=== PATIENT | female | born 1980 | race Caucasian/White ===

== ENCOUNTER → 2020-12-04 | Outpatient (CLI) | payer BC ==
[2020-12-04 16:49] LABS: Basophils % (A) 1 %; Eosinophils # (A) 0.1 k/uL (0-0.7); Eosinophils % (A) 1 %; HCT 39.6 % (34.0-46.0); HGB 13.3 gm/dL (11.4-16.0); Lymphocytes # (A) 1.6 k/uL (1.0-4.8); Lymphocytes % (A) 18 %; MCH 30.7 pg (25.0-35.0); MCHC 33.5 g/dL (31.0-37.0); MCV 91.4 fL (80.0-100.0); Mean Platelet Volume 7.6; Monocytes # (A) 0.6 k/uL (0-1.0); Monocytes % (A) 7 %; Neutrophils # (A) 6.5 k/uL (1.3-7.7); Neutrophils % (A) 73 %; Platelet Count 395 k/uL (150-450); RBC 4.33 m/uL (3.80-5.40); RDW 12.8 % (11.5-15.5)
== END | disposition home or self-care (01) ==
LOC: LABPAT 15:39
PROVIDERS: ATTEND Obstetrics & Gynecology
DX: Z01.812 Encounter for preprocedural laboratory examination (principal); N92.0 Excessive and frequent menstruation with regular cycle
CPT/HCPCS: 85025

== ENCOUNTER → 2020-12-04 | Outpatient (CLI) | payer BC ==
--- NOTE | 2020-12-07 11:11 | MM ---
Reason for exam: screening (asymptomatic). Last mammogram was performed 15 years and 9 months ago. History: Taking hormonal contraceptives beginning at age 18. Physical Findings: A clinical breast exam by your physician is recommended on an annual basis and results should be correlated with mammographic findings. MG Screening Mammo w CAD Bilateral CC and MLO view(s) were taken. Prior study comparison: March 11, 2005, CAD bilateral diagnostic mammogram. The breast tissue is heterogeneously dense. This may lower the sensitivity of mammography. There is no discrete abnormality. ASSESSMENT: Negative, BI-RAD 1 RECOMMENDATION: Routine screening mammogram of both breasts in 1 year.
== END | disposition home or self-care (01) ==
LOC: RADMAMWWP 15:47
PROVIDERS: ATTEND Family Medicine
DX: Z12.31 Encounter for screening mammogram for malignant neoplasm of breast (principal); Z79.3 Long term (current) use of hormonal contraceptives
CPT/HCPCS: 77067

== ENCOUNTER → 2020-12-12 | Day surgery (SDC) | payer BC ==
[2020-12-08 10:49] VITALS: BMI 26.6
[~2020-12-12] MED LIST: ACETAMINOPHEN TAB 325 MG TAB PO PRN; Acetaminophen-Codeine 300-30mg TAB PO PRN; DEXAMETHASONE SOD PHOSPHATE 4 MG/ML 1 ML VIAL IV ONE; HYDROmorphone 0.5 MG/0.5 ML SYRINGE IVP PRN; IBUPROFEN 600 MG TAB PO PRN; KETOROLAC 15 MG/ML 1 ML VIAL IVP PRN; KETOROLAC 15 MG/ML 1 ML VIAL ONE; LACTATED RINGERS 1,000 ML IV SCH; LIDOCAINE 1% (10MG/ML) FOR IV START INTRADERMA PRN; LIDOCAINE 1% INJ 10MG/ML (20 ML MDV) ONE; METOCLOPRAMIDE 5 MG/ML 2 ML VIAL IVP PRN; MIDAZOLAM 2 MG/2 ML VIAL ONE; ONDANSETRON 4 MG/2 ML VIAL IVP ONE; ONDANSETRON 4 MG/2 ML VIAL IVP PRN; PROPOFOL 10 MG/ML 20 ML VIAL IV ONE; Pre Op ABX Message 1 EACH MISC MISCELLANE ONE; SCOPOLAMINE 1.5MG/72HR PATCH TRANSDERM ONE; SIMETHICONE 80 MG CHEWABLE PO PRN; diphenhydrAMINE 50 MG/ML 1 ML VIAL IVP PRN; fentaNYL (PF) 50 MCG/ML 2 ML AMP ONE
--- NOTE | 2020-12-12 11:05 | P.OP ---
Date of Procedure: 12/12/20 Preoperative Diagnosis: #1. Menorrhagia Postoperative Diagnosis: Same Procedure(s) Performed: #1. Diagnostic hysteroscopy 2. Dilation and curettage #3. NovaSure endometrial ablation Anesthesia: other (Gen. by LMA) Surgeon: Bruno Jackson Estimated Blood Loss (ml): 5 IV fluids (ml): 500 Urine output (ml): 100 Pathology: other Condition: stable Disposition: PACU Operative Findings: Gravid pelvic examination demonstrated a roughly 5 week slightly anteverted mobile normal shaped uterus. Intraoperatively, cervix measured approximately 3- 1/2 cm while uterus measured 9 cm in length. Utilizing hysteroscope, the bilateral tubal ostia were seen. There was minimal tissue noted within the in vitro cavity and no evidence of any pathology. Curettage produced a small amount tissue onto the Telfa which was sent for pathological diagnoses. The settings for the NovaSure tool where a length of 5.5 cm, a width of 4.4 cm for a total power of 133 W. After a run time of 75 seconds, the base unit read "procedure complete." The postprocedural result with the hysteroscope appeared excellent. The patient is a relatively poor candidate for vaginal hysterectomy should become necessary in the future. Da Aron approach would be preferable. Description of Procedure: The patient was prepped and draped in usual fashion after general anesthesia was administered by the anesthesiologist. A weighted speculum was placed in the anterior lip cervix grasped with single-tooth tenaculum. The bladder was draining approximately 100 mL of clear constantin urine. The uterus was sounded to 9 cm with cervical length of 3.5 cm. The cervix was then serially dilated to admit the diagnostic hysteroscope which was placed and the cavity distended with normal saline. The findings as noted above with no evidence of any pathology and the bilateral tubal ostia were seen. The scope was and set aside and the NovaSure tool placed within the cavity, opened, and seated well. The settings were a length of 5.5 cm, a width of 4.4 cm for a total power of 133 W. The cavity check was attempted and passed without difficulty. The tool was enabled and the run was started. After a run time of 75 seconds, the base unit read "procedure complete." The NovaSure tool was closed, removed, and discarded. The diagnostic hysteroscope was replaced and the results appeared to be excellent. All instrumentation was then removed. The patient is a relatively poor candidate for vaginal hysterectomy given only a small degree of descensus. There was no significant ongoing bleeding either from the cervix or from the tenaculum site. Estimated blood loss for the entire case was approximately 5 mL. There were no complications. All sponge, instrument, and needle counts were correct. The patient tolerated the procedure well and proceeded to the recovery room in stable condition.
[2020-12-12 11:17] VITALS: TEMP 97.1
[2020-12-12 11:46] VITALS: RESP 18
[2020-12-12 12:07] VITALS: BP 125/72; PULSE 67
== END | disposition home or self-care (01) ==
LOC: OR 08:35
PROVIDERS: ATTEND Obstetrics & Gynecology
DX: N92.0 Excessive and frequent menstruation with regular cycle (principal); Z98.890 Other specified postprocedural states; Z98.51 Tubal ligation status; Z90.89 Acquired absence of other organs; J45.909 Unspecified asthma, uncomplicated; F17.200 Nicotine dependence, unspecified, uncomplicated; F41.9 Anxiety disorder, unspecified; K21.9 Gastro-esophageal reflux disease without esophagitis; Z82.49 Family history of ischemic heart disease and other diseases of the circulatory system; Z83.3 Family history of diabetes mellitus; Z82.3 Family history of stroke; Z80.8 Family history of malignant neoplasm of other organs or systems; Z80.0 Family history of malignant neoplasm of digestive organs; Z79.899 Other long term (current) drug therapy
CPT/HCPCS: 81025; 88305; 58563; J2250; J1100; J2405; J2001; J3010; J1885; J2704

== ENCOUNTER 2022-08-27 16:13 | Emergency (ER) | payer BC ==
[2022-08-27 16:18] VITALS: TEMP 98.1
[2022-08-27] MEDS ORDERED: KETOROLAC 15 MG/ML 1 ML VIAL IVP STA (16:31)
[2022-08-27] MEDS ORDERED: SODIUM CHLORIDE 0.9% 1,000 ML IV STA (16:31)
--- NOTE | 2022-08-27 17:12 | ED ---
Abdominal Pain HPI - General Chief Complaint: Abdominal Pain Stated Complaint: Abd pain Time Seen by Provider: 08/27/22 16:25 Source: patient Mode of arrival: ambulatory Limitations: no limitations - History of Present Illness Initial Comments: Patient is a 42-year-old female presenting with chief complaint of lower abdominal pain has been going on for the last week. Patient states that it feels like it's in the center of her pelvis and is a cramping pain. Patient attributed to menstrual cramps, but states that symptoms have been getting worse over the last week and she is now developing nausea. Patient had an ablation performed [address] Jackson. She saw him in the office today, states that when he pressed on her abdomen she had more sensitivity in the upper abdomen, he recommended reporting to the ER as he does not believe this to be a gynecologic concern. Patient admits to worsening nausea after eating. Pain is worse with laying back. She denies any dysuria or hematuria. Ever since the patient's ablation 2 years ago she has only had very minor spotting associated with her menstrual cycles, no current bleeding. No back or flank pain. No fevers or chills. No diarrhea. - Related Data Home Medications Medication Instructions Recorded Confirmed Citalopram Hydrobromide [CeleXA] 20 mg PO DAILY 12/08/20 12/12/20 Previous Rx's Medication Instructions Recorded Nitrofurantoin Monohyd/M-Cryst 100 mg PO Q12HR 5 Days #10 cap 08/27/22 [Macrobid] Allergies Allergy/AdvReac Type Severity Reaction Status Date / Time No Known Allergies Allergy Verified 08/27/22 16:18 Review of Systems ROS Statement: Those systems with pertinent positive or pertinent negative responses have been documented in the HPI. ROS Other: All systems not noted in ROS Statement are negative. Past Medical History Additional Past Medical History / Comment(s): hx. ovarian cysts History of Any Multi-Drug Resistant Organisms: None Reported Past Surgical History: Tubal Ligation, Uterine Ablation Past Anesthesia/Blood Transfusion Reactions: No Reported Reaction Past Psychological History: No Psychological Hx Reported Smoking Status: Never smoker Past Alcohol Use History: None Reported Past Drug Use History: None Reported - Past Family History Mother Family Medical History: No Reported History General Exam Limitations: no limitations General appearance: alert, in no apparent distress Head exam: Present: atraumatic, normocephalic, normal inspection Eye exam: Present: normal appearance Neck exam: Present: normal inspection, full ROM Respiratory exam: Present: normal lung sounds bilaterally. Absent: respiratory distress, wheezes, rales, rhonchi, stridor Cardiovascular Exam: Present: regular rate, normal rhythm, normal heart sounds. Absent: systolic murmur, diastolic murmur, rubs, gallop, clicks GI/Abdominal exam: Present: soft. Absent: distended, tenderness, guarding, rebound, rigid Neurological exam: Present: alert, oriented X3, CN II-XII intact Psychiatric exam: Present: normal affect, normal mood Skin exam: Present: warm, dry, intact, normal color. Absent: rash Course Vital Signs 08/27/22 08/27/22 16:15 19:29 Temperature 98.1 F Pulse Rate 57 L 50 L Respiratory 20 18 Rate Blood Pressure 147/114 135/77 O2 Sat by Pulse 100 100 Oximetry Medical Decision Making - Medical Decision Making Was pt. sent in by a medical professional or institution (, PA, POTATO PICKER, urgent care, hospital, or care home...) When possible be specific @ -Sent by JUVENILE COUNSELOR Did you speak to anyone other than the patient for history (EMS, parent, family, police, friend...)? What history was obtained from this source @ -No Did you review nursing and triage notes (agree or disagree)? Why? @ -I reviewed and agree with nursing and triage notes Were old charts reviewed (outside hosp., previous admission, EMS record, old EKG, old radiological studies, urgent care reports/EKG's, care home records)? Report findings @ -No old charts were reviewed Differential Diagnosis (chest pain, altered mental status, abdominal pain women, abdominal pain men, vaginal bleeding, weakness, fever, dyspnea, syncope, headache, dizziness, GI bleed, back pain, seizure, CVA, palpatations, mental health, musculoskeletal)? @ -MDM Differential Abdominal Pain Women: Appendicitis, Cholecystitis, diverticulosis, ischemic bowel, pancreatitis, hepatitis, UTI, gastroenteritis, AAA, incarcerated hernia, bowel obstruction, constipation, inflammatory bowel, hepatitis, peptic ulcer disease, splenic infarction, perforated viscus, vulvitis, ovarian torsion, PID, kidney stone, placenta abruption... This is not meant to be an all-inclusive list EKG interpreted by me (3pts min.). @ -As above X-rays interpreted by me (1pt min.). @ -None done CT interpreted by me (1pt min.). @ -Negative CT of abdomen and pelvis U/S interpreted by me (1pt. min.). @ -Ultrasound shows minimal free fluid. Multiple small uterine cyst. No endometrial thickening. No evidence of ovarian torsion. What testing was considered but not performed or refused? (CT, X-rays, U/S, labs)? Why? @ -None What meds were considered but not given or refused? Why? @ -None Did you discuss the management of the patient with other professionals (professionals i.e. Dr., PA, POTATO PICKER, lab, RT, psych nurse, psych social worker, power cleaner operator, teacher, service officer, case consultant)? Give summary @ -No Was smoking cessation discussed for >3mins.? @ -No Was critical care preformed (if so, how long)? @ -No Were there social determinants of health that impacted care today? How? (Homelessness, low income, unemployed, alcoholism, drug addiction, transportation, low edu. Level, literacy, decrease access to med. care, care home, rehab)? @ -No Was there de-escalation of care discussed even if they declined (Discuss DNR or withdrawal of care, Hospice)? DNR status @ -No What co-morbidities impacted this encounter? (DM, HTN, Smoking, COPD, CAD, Cancer, CVA, ARF, Chemo, Hep., AIDS, mental health diagnosis, sleep apnea, morbid obesity)? @ -None Was patient admitted / discharged? Hospital course, mention meds given and route, prescriptions, significant lab abnormalities, going to OR and other pertinent info. @ -Patient is a 42-year-old female presenting with chief complaint of pelvic pain that is ongoing for 1 week. She was seen in the office by her JUVENILE COUNSELOR today, on his exam she had tenderness to palpation of the bilateral upper quadrants as well, he encouraged her to report to the ER for further workup. On physical examination patient has minimal diffuse tenderness to the abdomen. Lab work shows no leukocytosis or anemia. CMP is unremarkable. Amylase and lipase are WNL. Urine has moderate leukocytes and 8 WBCs, we will treat for UTI with Macrobid. HCG is negative. Transvaginal ultrasound shows uterine cysts. CT shows no acute process. Patient is educated on these findings. Prescription is sent for Macrobid and patient is instructed to follow-up with her JUVENILE COUNSELOR. Follow-up with PCP. Report back to ER with any new or worsening symptoms. Discussed return parameters and answered all questions. Patient conveyed verbal understanding and agreed to the plan. I discussed this case in detail with my attending Dr. Breen Undiagnosed new problem with uncertain prognosis? @ -No Drug Therapy requiring intensive monitoring for toxicity (Heparin, Nitro, Insulin, Cardizem)? @ -No Were any procedures done? @ -No Diagnosis/symptom? @ -UTI Acute, or Chronic, or Acute on Chronic? @ -Acute Uncomplicated (without systemic symptoms) or Complicated (systemic symptoms)? @ -Uncomplicated Side effects of treatment? @ -No Exacerbation, Progression, or Severe Exacerbation? @ -No Poses a threat to life or bodily function? How? (Chest pain, USA, VT, pneumonia, PE, COPD, DKA, ARF, appy, cholecystitis, CVA, Diverticulitis, Homicidal, Suicidal, threat to staff... and all critical care pts) @ -No - Lab Data Result diagrams: 08/27/22 17:08 08/27/22 17:08 Lab Results 08/27/22 08/27/22 08/27/22 Range/Units 17:08 17:08 17:08 WBC 5.7 (3.8-10.6) k/uL RBC 4.51 (3.80-5.40) m/uL Hgb 13.7 (11.4-16.0) gm/dL Hct 41.2 (34.0-46.0) % MCV 91.3 (80.0-100.0) fL MCH 30.3 (25.0-35.0) pg MCHC 33.2 (31.0-37.0) g/dL RDW 12.8 (11.5-15.5) % Plt Count 329 (150-450) k/uL MPV 8.8 Neutrophils % 65 % Lymphocytes % 26 % Monocytes % 5 % Eosinophils % 2 % Basophils % 0 % Neutrophils # 3.7 (1.3-7.7) k/uL Lymphocytes # 1.5 (1.0-4.8) k/uL Monocytes # 0.3 (0-1.0) k/uL Eosinophils # 0.1 (0-0.7) k/uL Basophils # 0.0 (0-0.2) k/uL PT (9.0-12.0) sec INR (<1.2) APTT (22.0-30.0) sec Sodium 139 (137-145) mmol/L Potassium 4.2 (3.5-5.1) mmol/L Chloride 103 (98-107) mmol/L Carbon Dioxide 30 (22-30) mmol/L Anion Gap 6 mmol/L BUN 14 (7-17) mg/dL Creatinine 0.65 (0.52-1.04) mg/dL Est GFR (CKD-EPI)AfAm >90 (>60 ml/min/1.73 sqM) Est GFR (CKD-EPI)NonAf >90 (>60 ml/min/1.73 sqM) Glucose 82 (74-99) mg/dL Plasma Lactic Acid Earle 0.8 (0.7-2.0) mmol/L Calcium 9.4 (8.4-10.2) mg/dL Total Bilirubin 0.3 (0.2-1.3) mg/dL AST 24 (14-36) U/L ALT 22 (4-34) U/L Alkaline Phosphatase 68 (38-126) U/L Total Protein 7.2 (6.3-8.2) g/dL Albumin 4.2 (3.5-5.0) g/dL Amylase 71 (30-110) U/L Lipase 123 (23-300) U/L Urine Color Urine Appearance (Clear) Urine pH (5.0-8.0) Ur Specific Karnack (1.001-1.035) Urine Protein (Negative) Urine Glucose (UA) (Negative) Urine Ketones (Negative) Urine Blood (Negative) Urine Nitrite (Negative) Urine Bilirubin (Negative) Urine Urobilinogen (<2.0) mg/dL Ur Leukocyte Esterase (Negative) Urine RBC (0-5) /hpf Urine WBC (0-5) /hpf Ur Squamous Epith Cells (0-4) /hpf Urine Bacteria (None) /hpf Urine Mucus (None) /hpf Urine HCG, Qual (Not Detectd) 08/27/22 08/27/22 08/27/22 Range/Units 17:08 17:08 17:08 WBC (3.8-10.6) k/uL RBC (3.80-5.40) m/uL Hgb (11.4-16.0) gm/dL Hct (34.0-46.0) % MCV (80.0-100.0) fL MCH (25.0-35.0) pg MCHC (31.0-37.0) g/dL RDW (11.5-15.5) % Plt Count (150-450) k/uL MPV Neutrophils % % Lymphocytes % % Monocytes % % Eosinophils % % Basophils % % Neutrophils # (1.3-7.7) k/uL Lymphocytes # (1.0-4.8) k/uL Monocytes # (0-1.0) k/uL Eosinophils # (0-0.7) k/uL Basophils # (0-0.2) k/uL PT 9.8 (9.0-12.0) sec INR 0.9 (<1.2) APTT 23.6 (22.0-30.0) sec Sodium (137-145) mmol/L Potassium (3.5-5.1) mmol/L Chloride (98-107) mmol/L Carbon Dioxide (22-30) mmol/L Anion Gap mmol/L BUN (7-17) mg/dL Creatinine (0.52-1.04) mg/dL Est GFR (CKD-EPI)AfAm (>60 ml/min/1.73 sqM) Est GFR (CKD-EPI)NonAf (>60 ml/min/1.73 sqM) Glucose (74-99) mg/dL Plasma Lactic Acid Earle (0.7-2.0) mmol/L Calcium (8.4-10.2) mg/dL Total Bilirubin (0.2-1.3) mg/dL AST (14-36) U/L ALT (4-34) U/L Alkaline Phosphatase (38-126) U/L Total Protein (6.3-8.2) g/dL Albumin (3.5-5.0) g/dL Amylase (30-110) U/L Lipase (23-300) U/L Urine Color Light Yellow Urine Appearance Clear (Clear) Urine pH 7.0 (5.0-8.0) Ur Specific Karnack 1.015 (1.001-1.035) Urine Protein Negative (Negative) Urine Glucose (UA) Negative (Negative) Urine Ketones Negative (Negative) Urine Blood Negative (Negative) Urine Nitrite Negative (Negative) Urine Bilirubin Negative (Negative) Urine Urobilinogen <2.0 (<2.0) mg/dL Ur Leukocyte Esterase Moderate H (Negative) Urine RBC <1 (0-5) /hpf Urine WBC 8 H (0-5) /hpf Ur Squamous Epith Cells 3 (0-4) /hpf Urine Bacteria Rare H (None) /hpf Urine Mucus Rare H (None) /hpf Urine HCG, Qual Not Detected (Not Detectd) Disposition Clinical Impression: UTI (urinary tract infection) Disposition: HOME SELF-CARE Condition: Good Instructions (If sedation given, give patient instructions): Urinary Tract Infection in Women (ED) Additional Instructions: Follow-up with PCP and JUVENILE COUNSELOR. Report back to ER with any new or worsening symptoms. Take medication as prescribed. Prescriptions: Nitrofurantoin Monohyd/M-Cryst [Macrobid] 100 mg PO Q12HR 5 Days #10 cap Is patient prescribed a controlled substance at d/c from ED?: No Referrals: Dakota Dutton MD [Primary Care Provider] - 1-2 days Time of Disposition: 19:44
[2022-08-27 17:29] LABS: Basophils % (A) 0 %; Eosinophils # (A) 0.1 k/uL (0-0.7); Eosinophils % (A) 2 %; HCT 41.2 % (34.0-46.0); HGB 13.7 gm/dL (11.4-16.0); Lymphocytes # (A) 1.5 k/uL (1.0-4.8); Lymphocytes % (A) 26 %; MCH 30.3 pg (25.0-35.0); MCHC 33.2 g/dL (31.0-37.0); MCV 91.3 fL (80.0-100.0); Mean Platelet Volume 8.8; Monocytes # (A) 0.3 k/uL (0-1.0); Monocytes % (A) 5 %; Neutrophils # (A) 3.7 k/uL (1.3-7.7); Neutrophils % (A) 65 %; Platelet Count 329 k/uL (150-450); RBC 4.51 m/uL (3.80-5.40); RDW 12.8 % (11.5-15.5); WBC 5.7 k/uL (3.8-10.6)
[2022-08-27 17:42] LABS: INR 0.9 (<1.2); Partial Thromboplastin Time 23.6 sec (22.0-30.0); Prothrombin Time 9.8 sec (9.0-12.0)
[2022-08-27 17:43] LABS: ALT 22 U/L (4-34); AST 24 U/L (14-36); African American GFR (CKD) >90 (>60 ml/min/1.73 sqM); Albumin 4.2 g/dL (3.5-5.0); Alkaline Phosphatase 68 U/L (38-126); Amylase 71 U/L (30-110); Anion Gap 6 mmol/L; Blood Urea Nitrogen 14 mg/dL (7-17); Calcium 9.4 mg/dL (8.4-10.2); Carbon Dioxide 30 mmol/L (22-30); Chloride 103 mmol/L (98-107); Glucose 82 mg/dL (74-99); Lipase 123 U/L (23-300); Non-African American GFR(CKD) >90 (>60 ml/min/1.73 sqM); Potassium 4.2 mmol/L (3.5-5.1); Sodium 139 mmol/L (137-145); Total Bilirubin 0.3 mg/dL (0.2-1.3); Total Protein 7.2 g/dL (6.3-8.2)
[2022-08-27 17:46] LABS: Appearance,Urine Clear (Clear); Bacteria,Urine Rare /hpf; Bilirubin,Urine Negative (Negative); Blood,Urine Negative (Negative); Color,Urine Light Yellow; Glucose,Urine (UA) Negative (Negative); Ketones,Urine Negative (Negative); Leukocyte Esterase,Urine Moderate (Negative); Mucus,Urine Rare /hpf; Nitrite,Urine Negative (Negative); Protein,Urine Negative (Negative); RBC,Urine <1 /hpf (0-5); Specific Gravity,Urine 1.015 (1.001-1.035); Squamous Epithelial Cell,Urine 3 /hpf (0-4); Urobilinogen,Urine <2.0 mg/dL (<2.0); WBC,Urine 8 /hpf (0-5)
--- NOTE | 2022-08-27 18:10 | US ---
EXAMINATION TYPE: US transvaginal DATE OF EXAM: 08/27/2022 COMPARISON: 12/31/13 CLINICAL HISTORY: pelvic pain. Pelvic pain x 1 week. Hx of ablation in 2020 TECHNIQUE: Transvaginal (TV). Date of LMP: Pt states she does not have them anymore since the ablation EXAM MEASUREMENTS: Uterus: 8.5 x 4.6 x 3.6 cm Endometrial Stripe: 0.7 cm Right Ovary: 2.5 x 2.5 x 1.7 cm Left Ovary: Not seen 1. Uterus: Anteverted Hypoechoic area seen in the posterior part of uterus measuring 2.1 x 2.2 x 1 .5cm. Multiple cystic areas visualized throughout uterus and cervix. Largest is measuring 0.9 x 0.9 x 0.8cm 2. Endometrium: wnl 3. Right Ovary: wnl 4. Left Ovary: Not vis Spectral, color and waveform doppler imaging shows good arterial and venous flow within the ovaries ; there is no evidence for ovarian torsion. 5. Bilateral Adnexa: Small amount of free fluid visualized in the left adnexa 6. Posterior cul-de-sac: wnl IMPRESSION: Minimal free fluid. Multiple small uterine cysts. No endometrial thickening. No evidence of ovarian torsion. Left ovary not seen.
[2022-08-27 19:30] VITALS: BP 135/77; PULSE 50; RESP 18
--- NOTE | 2022-08-27 19:30 | CT ---
EXAMINATION TYPE: CT abdomen pelvis w con DATE OF EXAM: 08/27/2022 COMPARISON: None HISTORY: abd pain CT DLP: 1002.4 mGycm Automated exposure control for dose reduction was used. CONTRAST: Performed with IV Contrast, patient injected with 90ml mL of Isovue 300. Images obtained from the diaphragm to the floor the pelvis with the IV contrast. Lung bases are clear. No pleural effusion. Heart size is normal. No pericardial effusion. Liver spleen and stomach pancreas and gallbladder appear intact. The bile ducts are nondilated. There is no adrenal mass. Kidneys show satisfactory contrast opacification. No hydronephrosis. Ureter s are not dilated. No retroperitoneal adenopathy. The bladder distends smoothly. Uterus is anteverted . No free fluid in the pelvis. No evidence of pelvic mass. The lumbar vertebrae have normal spacing and alignment. Posterior elements are intact. Bony pelvis is intact. The hip joints are intact. Sacroiliac joints are intact. There is no mesenteric edema. No ascites or free air. No sign of a bowel obstruction. Appendix not se en. No sign of thickened appendix. There is surgical clip in the pelvis on the right side. IMPRESSION: Negative CT scan abdomen and pelvis.
[2022-08-27] MEDS ORDERED: NITROFURANTOIN MONOHYD/M-CRYST 100 MG CAP PO STA (19:44)
== END 2022-08-27 20:07 | disposition home or self-care (01) ==
LOC: EC 16:13
DX: N39.0 Urinary tract infection, site not specified (principal)
CPT/HCPCS: 36415; 80053; 82150; 83605; 83690; 85025; 85610; 85730; 81001; 81025; 93975; 76830; 74177; 99284; 96374; 96361; J1885; Q9967

== ENCOUNTER → 2022-09-27 | Outpatient (CLI) | payer BC ==
[2022-09-27 21:39] LABS: African American GFR (CKD) 112.7 (60.0-200.0); Anion Gap 9.7 mmol/L (10.00-18.00); Blood Urea Nitrogen 21.5 mg/dL (9.0-27.0); Carbon Dioxide 28.2 mmol/L (20.0-27.5); Non-African American GFR(CKD) 97.2 (60.0-200.0); Potassium 4.1 mmol/L (3.5-5.5)
[2022-09-27 22:57] LABS: Basophils # (A) 0.02 X 10*3/uL (0.00-0.10); Basophils % (A) 0.4 %; Eosinophils # (A) 0.07 X 10*3/uL (0.04-0.35); Eosinophils % (A) 1.2 %; HCT 41.1 % (37.2-46.3); HGB 13.3 g/dL (12.0-15.0); Immature Grans, Automated 0.2 %; Lymphocytes # (A) 1.88 X 10*3/uL (0.90-5.00); Lymphocytes % (A) 33.5 %; MCH 29.5 pg (27.0-32.0); MCHC 32.4 g/dL (32.0-37.0); MCV 91.1 fL (80.0-97.0); Mean Platelet Volume 10.9 fL (9.5-12.2); Monocytes # (A) 0.47 X 10*3/uL (0.20-1.00); Monocytes % (A) 8.4 %; NRBC Per 100 WBC 0 /100 WBCS (0.0-0.0); Neutrophils # (A) 3.16 X 10*3/uL (1.80-7.70); Neutrophils % (A) 56.3 %; Platelet Count 149 X 10*3/uL (140-440); RBC 4.51 X 10*6/uL (4.10-5.20); WBC 5.61 X 10*3/uL (4.50-10.00)
== END | disposition home or self-care (01) ==
LOC: LABPAT 15:15
PROVIDERS: ATTEND Obstetrics & Gynecology
DX: Z01.812 Encounter for preprocedural laboratory examination (principal); N85.7 Hematometra; R10.2 Pelvic and perineal pain
CPT/HCPCS: 80051; 82565; 82947; 84520; 85025; 87086

== ENCOUNTER 2022-10-07 07:39 | Day surgery (SDC) | payer BC ==
[2022-10-07] MEDS ORDERED: ONDANSETRON 4 MG/2 ML VIAL IVP ONE (08:08)
[2022-10-07] MEDS ORDERED: LACTATED RINGERS 1,000 ML IV SCH (08:08)
[2022-10-07] MEDS ORDERED: DEXAMETHASONE SOD PHOSPHATE 4 MG/ML 1 ML VIAL IV ONE (08:08)
[2022-10-07] MEDS ORDERED: HYDROmorphone 0.5 MG/0.5 ML SYRINGE IVP PRN (08:08)
[2022-10-07] MEDS ORDERED: SCOPOLAMINE 1 MG/72 HR PATCH TRANSDERM ONE (08:43)
[2022-10-07] MEDS ORDERED: MIDAZOLAM 2 MG/2 ML VIAL IVP ONE (09:06)
[2022-10-07] MEDS ORDERED: diphenhydrAMINE 50 MG/ML 1 ML VIAL IVP ONE (09:22)
[2022-10-07] MEDS ORDERED: diphenhydrAMINE 50 MG/ML 1 ML VIAL ONE (09:22)
[2022-10-07] MEDS ORDERED: GLYCOPYRROLATE 0.2 MG/ML 2 ML VIAL ONE (10:10)
[2022-10-07] MEDS ORDERED: SUCCINYLCHOLINE CHLORIDE 200 MG/10 ML VIAL IV ONE (10:10)
[2022-10-07] MEDS ORDERED: ROCURONIUM 10 MG/ML (5 ML VIAL) IV ONE (10:10)
[2022-10-07] MEDS ORDERED: PROPOFOL 10 MG/ML 20 ML VIAL IV ONE (10:10)
[2022-10-07] MEDS ORDERED: LIDOCAINE 2% INJ 20 MG/ML (2 ML VIAL) ONE (10:10)
[2022-10-07] MEDS ORDERED: NEOSTIGMINE 1 MG/ML 10 ML VIAL ONE (10:10)
[2022-10-07] MEDS ORDERED: fentaNYL (PF) 50 MCG/ML 2 ML AMP ONE (10:10)
[2022-10-07] MEDS ORDERED: BUPIVACAINE (PF) 0.25% 30 ML VIAL SQ ONE ×2 (11:15)
[2022-10-07] MEDS ORDERED: LACTATED RINGERS 1,000 ML IV ONE ×2 (11:16)
[2022-10-07] MEDS ORDERED: METOCLOPRAMIDE 5 MG/ML 2 ML VIAL IVP PRN (11:56)
[2022-10-07] MEDS ORDERED: Acetaminophen-Codeine 300-30mg TAB PO PRN ×2 (11:56)
[2022-10-07] MEDS ORDERED: KETOROLAC 15 MG/ML 1 ML VIAL IVP PRN (11:56)
[2022-10-07] MEDS ORDERED: SIMETHICONE 80 MG CHEWABLE PO PRN (11:56)
[2022-10-07] MEDS ORDERED: ZOLPIDEM 5 MG TAB PO PRN (11:56)
[2022-10-07] MEDS ORDERED: diphenhydrAMINE 50 MG/ML 1 ML VIAL IVP PRN (11:56)
[2022-10-07] MEDS ORDERED: ONDANSETRON 4 MG/2 ML VIAL IVP PRN (11:56)
--- NOTE | 2022-10-07 12:09 | P.OP ---
Date of Procedure: 10/07/22 Preoperative Diagnosis: #1. Severe chronic pelvic pain #2. History of endometrial ablation Postoperative Diagnosis: Same Procedure(s) Performed: #1. Da Aron robotically assisted laparoscopic hysterectomy with bilateral salpingectomy #2. Diagnostic cystoscopy Anesthesia: IDALMIS Surgeon: Bruno Jackson Patient Clerical Assistant #1: Lissette Ramos Estimated Blood Loss (ml): 50 IV fluids (ml): 700 Urine output (ml): 100 Pathology: other (Uterus and bilateral fallopian tubes) Condition: stable Disposition: PACU Operative Findings: Gravid pelvic examination demonstrated a 4-5 week anteverted mobile normal shaped uterus. Intraoperatively, the uterus sounded to approximately 10 cm was thought to possibly been perforated which was confirmed with placement of the uterine manipulator. Intraoperatively, the uterus, tubes, and ovaries were entirely normal with the exception of a fairly lengthy Of fallopian tube missing on each side from previous tubal ligation. There was noted to be the uterine manipulator bulb penetrating through the anterior uterine fundus. There was no evidence of endometriosis or other pathology throughout the pelvis. Following the procedure, the dome of the bladder appeared normal from both a laparoscopic and cystoscopic perspective with no evidence of damage. The bilateral ureters were noted to be peristalsing. Description of Procedure: The patient was prepped and draped in usual fashion after general endotracheal anesthesia was administered by the anesthesiologist. A weighted speculum was placed in the anterior lip the cervix grasped with single-tooth tenaculum. Uterus was sounded to approximately 10 cm per concern was noted for possible perforation is uterus is felt to be smaller than this. Serial dilation was carried out to admit the V care from uterine manipulator with a large cup. The was placed to the level of approximately 9 cm and the balloon inflated. The cup was and seated over the cervix in standard fashion. The bladder was tanika terized with the clear constantin urine noted. Attention was turned to the abdomen where an incision was made in the vertical fold of the umbilicus proximal 8 mm in length allowing insertion of an 8 mm da Aron optical port under direct vision station without difficulty. A pneumoperitoneum was infused. A site was selected in the right lower quadrant approximately 3 cm below the level of the optical port and 10-12 7 m lateral where an 8 mm incision was made in the transverse plane allowing insertion of an 8 mm da Aron port under direct visualization without difficulty. A myringotomy port was placed in the left lower quadrant. The distance from in the left lower quadrant port and the optical port bisected and a site selected approximately 3-4 synovators above the optical port were 10 mm incision site allowing insertion of the 10 mm optical port for assistant manager/embalmer use. The patient was then positioned properly for docking of the robot which was then docked to the patient without difficulty. The right arm was loaded with a monopolar cautery scissors while the left arm was loaded with a [place] bipolar cautery forceps. I resented to the console at which time the left fallopian tube was grasped and elevated it was removed with cautery and sharp dissection to the point where the gap from the previous tubal ligation was noted. That portion of fallopian tube was removed through the assi aprylt's port. The remainder of the tubal dissection was carried out and the utero-ovarian ligament divided using bipolar cautery followed by monopolar cautery scissors. This dissection was carried out through the round ligament on that side. Once the anterior leaf of the peritoneum could be identified, it was dissected sharply to create the bladder flap across the midline. Further dissection was carried out to reflect the bladder distally. Skeletonization was carried out to identify the uterine vasculature which was then thoroughly cauterized with bipolar cautery and then cut. Attention was then shifted to the patient's right side where similar operations were carried out as noted above. A segment of fallopian tube was again removed through the assistant manager/embalmer's port. Once the vessels had been skeletonized and cauterized and the bladder was reflected distally, the vaginal cup was easily identified. The anterior cul-de-sac was opened sharply with the monopolar cautery scissors to identify the vaginal cup. The cup was then followed circumferentially around the uterus until the uterus was removed from the cuff and then removed through the vagina. A pack was placed in the vagina to continue the pneumoperitoneum. The monopolar cautery scissors was replaced with a laparoscopic suturing device and a stitch of 0 Stratafix was passed into the abdomen. The stitch was then utilized to close the cuff from the right angle to the left angle and then retraced our steps for approximately 2-3 throws to secure the stitch in the midline. Any small points of bleeding along the way were made hemostatic with the [place] but closure of the vaginal cuff led to excellent hemostasis. Thorough suction irrigation was carried out. I then returned to the patient and remove the Burger catheter allowing placement of a diagnostic cystoscope. The bladder was filled with sterile water in the dome of the bladder examined from both the cystoscopic and laparoscopic sides at which time it was noted to be intact with no damage. The ureteral hill adnexa were both examined and both noted to be peristalsing with clear constantin urine. The instrumentation was then all removed and the robot undocked. The Burger catheter was replaced. The abdominal incisions were closed with interrupted subcuticular stitches of 4-0 Vicryl followed by half-inch Steri-Strips placed with Mastisol. The incisions were injected with a total of 10 mL of half percent Marcaine without epinephrine equally divided among the 4 incisions. Estimated blood loss for the case was approximately 50 mL. There were no complications. All sponge, instrument, needle counts were correct. The patient tolerated the procedure well and proceeded to the recovery room in stable condition.
[2022-10-07] MEDS: LACTATED RINGERS 1,000 ML IV SCH ×2 (15:36→20:00)
--- NOTE | 2022-10-07 16:38 | P.ANPRN ---
Procedure Note - Anesthesia - Epidural/Spinal Spinal Time Out Performed: Yes Date of Procedure: 10/07/22 Procedure Start Time: : Procedure Stop Time: 09:10 Location of Patient: PreOp Indication: Acute Post-Operative Pain, Requested by Surgeon Sedation Type: Sedate with meaningful contact maintained Preparation: Sterile Prep Position: Sitting Needle Guage: 25 Blood Aspirated: No Pain Paresthesia on Injection Noted: No Events: Uneventful and Well Tolerated (duramorph 300 mics plus fenanyl 25 mics)
[2022-10-07] MEDS ORDERED: SENNOSIDES-DOCUSATE SODIUM 1 EACH TAB PO SCH (21:00)
[2022-10-07 23:46] VITALS: RESP 16
[2022-10-07] MEDS: IBUPROFEN 600 MG TAB PO PRN (23:55)
[2022-10-08] MEDS: IBUPROFEN 600 MG TAB PO PRN (06:58)
[2022-10-08 07:30] VITALS: BP 97/47; PULSE 66; TEMP 97.9
[2022-10-08 08:37] LABS: Basophils % (A) 0 %; Eosinophils # (A) 0.1 k/uL (0-0.7); Eosinophils % (A) 1 %; HCT 36.8 % (34.0-46.0); HGB 11.4 gm/dL (11.4-16.0); Lymphocytes # (A) 1.5 k/uL (1.0-4.8); Lymphocytes % (A) 14 %; MCH 28.9 pg (25.0-35.0); MCV 93.3 fL (80.0-100.0); Mean Platelet Volume 7.3; Monocytes # (A) 0.6 k/uL (0-1.0); Monocytes % (A) 5 %; Neutrophils # (A) 8.7 k/uL (1.3-7.7); Neutrophils % (A) 79 %; Platelet Count 301 k/uL (150-450); RBC 3.95 m/uL (3.80-5.40); RDW 12.9 % (11.5-15.5)
--- NOTE | 2022-10-08 08:44 | P.DS ---
Providers Expected date of discharge: 10/08/22 Attending physician: Bruno Jackson Primary care physician: Jimenez Dutton - Discharge Diagnosis(es) (1) Chronic pelvic pain in female Current Visit: Yes Status: Acute (2) History of endometrial ablation Current Visit: Yes Status: Acute Hospital Course: The patient is a 42-year-old 1 para 1001 admitted through the office with a recent onset of acute pelvic pain beginning approximately 2-3 months ago. Was initially not thought to be pelvic in nature but, has now shown itself to be likely due to her history of endometrial ablation in 2020. Ultrasound shows significant cystic changes within the uterus consistent with possible hematoma endometrial. The pain was relatively steady and is significantly more intense on a monthly basis. She has requested definitive therapy and exam under anesthesia made the patient a candidate only for open approach versus da Aron approach. She was taken the operating room for da Aron robotically assisted laparoscopic hysterectomy with bilateral salpingectomy and diagnostic cystoscopy. This was carried out and an uncomplicated fashion. Her postoperative course has been entirely unremarkable with vital signs being stable and her temperature was afebrile throughout. She is already tolerating regular diet. She was deemed stable for discharge on postoperative day #1 and was discharged home to follow-up in the office in 2 weeks for an incision check and 8 weeks routinely. Discharge instructions included calling for any significantly increased fever, abdominal pain, incisional complaints, vaginal bleeding, or anything else that concerned her. She was additionally instructed to abstain from anything in the vagina for at least 8 weeks time. She understood her instructions and agrees to follow up as noted above. Discharge medications included any home medications as well as plvh-anc-yctpizi analgesic pain medications. She was additionally given a prescription for Tylenol 3, 1-2 by mouth every 6 hours when necessary pain, #20 dispensed with no refills. Discharge hemoglobin and hematocrit were 11.4 and 36.8 respectively. Procedures: #1. Da Aron robotically assisted laparoscopic hysterectomy with bilateral salpingectomy #2. Diagnostic cystoscopy Patient Condition at Discharge: Stable Plan - Discharge Summary Discharge Rx Participant: Yes New Discharge Prescriptions: No Action Semaglutide [Wegovy] 0.25 mg SQ TH Citalopram Hydrobromide [CeleXA] 20 mg PO DAILY Discharge Medication List Citalopram Hydrobromide [CeleXA] 20 mg PO DAILY 12/08/20 [History] Semaglutide [Wegovy] 0.25 mg SQ TH 10/01/22 [History] Follow up Appointment(s)/Referral(s): Bruno Jackson MD [STAFF PHYSICIAN] - 2 Weeks Discharge Disposition: HOME SELF-CARE
[2022-10-08] MEDS ORDERED: ACETAMINOPHEN TAB 325 MG TAB PO PRN (11:57)
--- NOTE | 2022-10-09 13:00 | P.PN ---
Progress Note - Text 10/08/22 644am 40-year-old female status post vaginal hysterectomy with spinal Duramorph. Patient seen and evaluated for postop pain control with a VAS of 0 with no commands of nausea vomiting. Patient does have complains of pruritus which should subside soon.
== END 2022-10-08 10:05 | disposition home or self-care (01) ==
LOC: OR 07:39 → 4FBP 12:17 → OR 10-08 10:05
PROVIDERS: ATTEND Obstetrics & Gynecology
DX: D25.1 Intramural leiomyoma of uterus (principal); G89.18 Other acute postprocedural pain; Z98.51 Tubal ligation status; Z98.890 Other specified postprocedural states; Z79.899 Other long term (current) drug therapy
CPT/HCPCS: 58571; 64447; S2900; 81025; 85025; 86850; 86900; 86901; 88307

== ENCOUNTER → 2022-12-26 | Outpatient (CLI) | payer BC ==
--- NOTE | 2022-12-27 07:51 | MM ---
Reason for Exam: Screening (asymptomatic). Last mammogram was performed 2 year(s) and 0 month(s) ago. Patient History: Menarche at age 16. First Full-Term at age 29. Hysterectomy at age 42. Premenopausal. Hormonal Contraceptives, starting at age 18. Risk Values: Hollie 5 year model risk: 0.7%. NCI Lifetime model risk: 10.0%. Prior Study Comparison: 03/11/2005 Bilateral Diagnostic Mammogram, [facility] WITH [facility]. 12/04/2020 Bilateral Screening Mammogram, [facility] WITH [facility]. Tissue Density: The breast tissue is heterogeneously dense. This may lower the sensitivity of mammography. Findings: Analyzed By CAD. Asymmetric nodular density approximately 7.8 cm from the nipple 12:00 position left breast. Additional views are recommended. No suspicious calcifications are present. Overall Assessment: Incomplete: need additional imaging evaluation, BI-RAD 0 Management: Diagnostic Mammogram of the left breast. . Patient should continue monthly self-breast exams. A clinical breast exam by your physician is recommended on an annual basis. This exam should not preclude additional follow-up of suspicious palpable abnormalities. Note on Hollie scores and lifetime risk: 1. A Hollie score greater than 3% is considered moderate risk. If this is the case, consider specialist referral to assess eligibility for a risk reducing agent. 2. If overall lifetime risk for the development of breast cancer is 20% or higher, the patient may qualify for future screening with alternating mammogram and breast MRI. Electronically signed and approved by: Oracio Reaves M.D. Radiologis
== END | disposition home or self-care (01) ==
LOC: RADMAMWWP 13:57
PROVIDERS: ATTEND Obstetrics & Gynecology
DX: Z12.31 Encounter for screening mammogram for malignant neoplasm of breast (principal)
CPT/HCPCS: 77063; 77067

== ENCOUNTER → 2022-12-31 | Outpatient (CLI) | payer BC ==
--- NOTE | 2022-12-31 14:08 | MM ---
Reason for Exam: Additional evaluation requested from abnormal screening. Last screening mammogram was performed less than 1 month ago. Patient History: Menarche at age 16. First Full-Term at age 29. Hysterectomy at age 42. Premenopausal. Hormonal Contraceptives, starting at age 18. Risk Values: Hollie 5 year model risk: 0.7%. NCI Lifetime model risk: 10.0%. Prior Study Comparison: 03/11/2005 Bilateral Diagnostic Mammogram, [facility]. 12/04/2020 Bilateral Screening Mammogram, [facility]. 12/26/2022 Bilateral MG 3D screening mammo w/cad, [facility]. Tissue Density: Left: The breast tissue is heterogeneously dense. This may lower the sensitivity of mammography. Findings: Analyzed By CAD. The area of asymmetric density posterior outer aspect of the left breast disperses on additional spot 3-D view. Findings compatible with superimposition shadow. Overall Assessment: Benign, BI-RAD 2 Management: Screening Mammogram of both breasts in 1 year. Results were given to the patient verbally at the time of exam. Patient should continue monthly self-breast exams. A clinical breast exam by your physician is recommended on an annual basis. This exam should not preclude additional follow-up of suspicious palpable abnormalities. Note on Hollie scores and lifetime risk: 1. A Hollie score greater than 3% is considered moderate risk. If this is the case, consider specialist referral to assess eligibility for a risk reducing agent. 2. If overall lifetime risk for the development of breast cancer is 20% or higher, the patient may qualify for future screening with alternating mammogram and breast MRI. Electronically signed and approved by: Berny Lockhart M.D. Radiologist
== END | disposition home or self-care (01) ==
LOC: RADMAMWWP 13:19
PROVIDERS: ATTEND Obstetrics & Gynecology
DX: R92.8 Other abnormal and inconclusive findings on diagnostic imaging of breast (principal)
CPT/HCPCS: 77061; 77065

== ENCOUNTER → 2023-07-07 | Outpatient (CLI) | payer BC ==
--- NOTE | 2023-07-07 12:51 | FL ---
COMPARISON: NONE DATE OF EXAM: 07/07/2023 HISTORY: Dysphasia A number of thin and thick substances were ingested under the care of the department of speech pathol ogy. There is no evidence of aspiration or penetration. There is no evidence of obstruction. 72 se conds of fluoroscopy time. A DAP cannot be obtained within this fluoroscopic room. IMPRESSION: 1. No evidence of aspiration or penetration.
== END | disposition home or self-care (01) ==
LOC: RADFLMAIN 11:33
PROVIDERS: ATTEND Otolaryngology
DX: R13.12 Dysphagia, oropharyngeal phase (principal)
CPT/HCPCS: 74230

== ENCOUNTER → 2024-02-25 | Outpatient (CLI) | payer BC ==
--- NOTE | 2024-02-25 17:54 | CT ---
EXAMINATION TYPE: CT sinus wo con CT DLP: 635.10 mGycm, Automated exposure control for dose reduction was used. DATE OF EXAM: 02/25/2024 5:24 PM COMPARISON: None. CLINICAL INDICATION: Female, 44 years old with history of J32.0 Chronic Maxillary sinusitis; Chronic Maxillary sinusitis TECHNIQUE: Multiple thin axial images were obtained through the paranasal sinuses without the use of IV contrast. Additional coronal and sagittal reformatted images were submitted for evaluation. Contrast used: none Oral contrast used: none FINDINGS: Frontal sinuses: Normally developed and aerated. Frontal Recess: Clear Maxillary Sinuses: Normally developed and aerated. Maxillary Infundibula(OMC): Clear, No Juancarlos cells identified. Ethmoid sinuses: Normally developed and aerated. Ethmoidal notch: Protected and abutting the lateral lamina. Sphenoid sinuses: Normally developed and aerated. There is sellar sphenoid sinus pneumatization witho ut evidence of dehiscence. No dehiscence of carotid canal. No evidence of optic nerve dehiscence wit hin the sphenoid sinus. No evidence of Onodi cells. Sphenoethmoidal recesses: Clear. Nasal septum: Within normal limits.. Nasal Turbinates: Within normal limits. Mastoid air cells & middle ears: The air cells are clear. The middle ears are grossly unremarkable. Modified Soft tissues & Brain: Partially seen without gross abnormality. Globes are intact. Other: Cribriform plate demonstrates symmetric Keros classification type 2 cribriform plate. No evidence of bony dehiscence of skull base. Lamina papyracea is intact without evidence of remote orbital fracture or orbital prolapse into the e thmoid sinus. IMPRESSION: 1. No significant mucosal sinus disease. 2. The ostiomeatal units, frontonasal and sphenoethmoidal recesses are clear. [facility], , 02/25/2024 5:52 PM
== END | disposition home or self-care (01) ==
LOC: RADCTMAIN 17:09
PROVIDERS: ATTEND Otolaryngology
DX: J32.0 Chronic maxillary sinusitis (principal)
CPT/HCPCS: 70486

== ENCOUNTER 2024-06-09 08:17 | Emergency (ER) | payer BC ==
[2024-06-09 08:23] VITALS: TEMP 98.2
--- NOTE | 2024-06-09 09:11 | ED ---
Headache HPI - General Chief Complaint: Recheck/Abnormal Lab/Rx Stated Complaint: Headache, RT sided facial pain Time Seen by Provider: 06/09/24 08:24 Source: patient, RN notes reviewed Mode of arrival: ambulatory Limitations: no limitations - History of Present Illness Initial Comments: This is a 44-year-old female who presents to the emergency department for a headache. States that it started 5 days ago. Pain was to the right holiness with some radiation across near the eye. Last night she developed shooting pain going down into her jaw and then noticed a rash by the right holiness and near the nose. Her eye does not hurt and her vision is not blurry, however her eye feels "not right". Denies any history of similar symptoms in the past and she does not have a history of headaches or migraines. She tried multiple caok-phv-lwphwcp medications without any relief. Denies any history of shingles. She has not received the shingles vaccine. She did have chickenpox when she was younger. MD Complaint: headache - Related Data Home Medications Medication Instructions Recorded Confirmed Citalopram Hydrobromide [CeleXA] 20 mg PO DAILY 12/08/20 10/01/22 Semaglutide [Wegovy] 0.25 mg SQ TH 10/01/22 10/01/22 Previous Rx's Medication Instructions Recorded HYDROcodone/APAP 7.5-325MG [Farwell 1 tab PO Q6HR PRN 3 Days #12 tab 06/09/24 7.5-325] Ketorolac [Toradol] 10 mg PO Q6HR PRN #15 tab 06/09/24 valACYclovir HCL [Valtrex] 1,000 mg PO Q8H 7 Days #21 tablet 06/09/24 Allergies Allergy/AdvReac Type Severity Reaction Status Date / Time No Known Allergies Allergy Verified 06/09/24 08:23 Review of Systems ROS Statement: Those systems with pertinent positive or pertinent negative responses have been documented in the HPI. ROS Other: All systems not noted in ROS Statement are negative. Past Medical History Past Medical History: Skin Disorder Additional Past Medical History / Comment(s): hx. ovarian cysts History of Any Multi-Drug Resistant Organisms: None Reported Past Surgical History: Tubal Ligation, Uterine Ablation Additional Past Surgical History / Comment(s): mass removed from underneath eye Past Anesthesia/Blood Transfusion Reactions: No Reported Reaction Past Psychological History: No Psychological Hx Reported Smoking Status: Never smoker Past Alcohol Use History: None Reported Past Drug Use History: Marijuana - Past Family History Mother Family Medical History: No Reported History General Exam Limitations: no limitations General appearance: alert, in no apparent distress Head exam: Present: atraumatic, normocephalic, normal inspection Eye exam: Present: normal appearance, PERRL, EOMI. Absent: scleral icterus, conjunctival injection, periorbital swelling Respiratory exam: Present: normal lung sounds bilaterally. Absent: respiratory distress, wheezes, rales, rhonchi, stridor Cardiovascular Exam: Present: regular rate, normal rhythm, normal heart sounds. Absent: systolic murmur, diastolic murmur, rubs, gallop, clicks Neurological exam: Present: alert, oriented X3, CN II-XII intact Psychiatric exam: Present: normal affect, normal mood Skin exam: Present: other (Grouped vesicular lesions along the right holiness and to the right side of the nose. Significant tenderness on palpation.) Course Vital Signs 06/09/24 06/09/24 08:18 09:45 Temperature 98.2 F 98.2 F Pulse Rate 112 H 90 Respiratory 16 18 Rate Blood Pressure 148/80 142/84 O2 Sat by Pulse 100 100 Oximetry Medical Decision Making - Medical Decision Making This is a 44-year-old female who presents to the emergency department for a headache and a rash. Was pt. sent in by a medical professional or institution? @ -No Did you speak to anyone other than the patient for history? @ -No Did you review nursing and triage notes? @ -Yes, and I agree, it is accurate with regards to the patient's symptoms. Were old charts reviewed? @ -No Differential Diagnosis? @ -Differential Headache: Migraine, tension, cluster, carbon monoxide, central venous thrombosis, pension karma temporal arteritis, acute closure glaucoma, intercranial hemorrhage, mastoiditis, sinusitis, head injury, this is not meant to be an all-inclusive list. EKG interpreted by me (3pts min.)? @ -Not obtained X-rays interpreted by me (1pt min.)? @ -Not obtained CT interpreted by me (1pt min.)? @ -Not obtained U/S interpreted by me (1pt. min.)? @ -Not obtained What testing was considered but not performed? (CT, X-rays, U/S, labs)? Why? @ -None What meds were considered but not given? Why? @ -None Did you discuss the management of the patient with other professionals? @ -No Did you reconcile home meds? @ -No Was smoking cessation discussed for >3mins.? @ -No Was critical care preformed (if so, how long)? @ -No Were there social determinants of health that impacted care today? How? (Homelessness, low income, unemployed, alcoholism, drug addiction, transportation, low edu. Level, literacy, decrease access to med. care, correction, rehab)? @ -No Was there de-escalation of care discussed even if they declined? (Discuss DNR or withdrawal of care, Hospice)? @ -No What co-morbidities impacted this encounter? (DM, HTN, Smoking, COPD, CAD, Cancer, CVA, Hep., AIDS, mental health diagnosis, sleep apnea, morbid obesity)? @ -None Was patient admitted / discharged? @ -Discharged. On exam patient had grouped vesicular lesions along the right holiness and to the right side of the nose. Given the dermatomal distribution and severity of her pain, presentation was most likely related to shingles. Fluorescein staining performed revealing no dendritic lesions on the eye. Prescription for Valtrex provided along with Farwell and Toradol for pain control. She was also sent home with lidocaine and capsaicin cream to see if that offers any additional benefit to her pain. She will follow-up with her PCP as scheduled tomorrow. Patient discharged home in stable condition. Case discussed with ED attending Dr. Miner. Return precautions reviewed in depth, the patient is instructed to return to the emergency department with any new, worsening, or concerning symptoms. Patient verbalized understanding. Undiagnosed new problem with uncertain prognosis? @ -None Drug Therapy requiring intensive monitoring for toxicity (Heparin, Nitro, Insulin, Cardizem)? @ -None Were any procedures done? @ -None Diagnosis/symptom? @ -Shingles Acute, or Chronic, or Acute on Chronic? @ -Acute Uncomplicated (without systemic symptoms) or Complicated (systemic symptoms)? @ -Uncomplicated Side effects of treatment? @ -None Exacerbation, Progression, or Severe Exacerbation] @ -Not applicable Poses a threat to life or bodily function? @ -No Disposition Clinical Impression: Shingles Disposition: HOME SELF-CARE Instructions (If sedation given, give patient instructions): Shingles (ED) Additional Instructions: Return to the emergency department with any new, worsening, or concerning symptoms. Take the Valtrex as prescribed for 7 days. Take the Toradol with Tylenol as needed for pain relief. If you choose to take the Toradol, do not take any other anti-inflammatories such as ibuprofen, take one or the other. Take the Farwell sparingly when your pain is the most severe. Try applying the topical creams provided up to 3-4 times daily to see if they offer you any benefit. Follow-up with your primary care provider as scheduled. Prescriptions: HYDROcodone/APAP 7.5-325MG [Farwell 7.5-325] 1 tab PO Q6HR PRN 3 Days #12 tab PRN Reason: Pain Ketorolac [Toradol] 10 mg PO Q6HR PRN #15 tab PRN Reason: Pain valACYclovir HCL [Valtrex] 1,000 mg PO Q8H 7 Days #21 tablet Is patient prescribed a controlled substance at d/c from ED?: Yes When asked, does pt state using other controlled substances?: No If prescribed controlled substance>3 days was MAPS reviewed?: Prescribed <3 Days Referrals: Dakota Dutton MD [Primary Care Provider] - 1-2 days Time of Disposition: 09:29
[2024-06-09] MEDS: KETOROLAC 15 MG/ML 1 ML VIAL IM STA (09:13)
[2024-06-09] MEDS: FLUORESCEIN STRIPS 1 MG STRIP LEFT EYE ONE (09:15)
[2024-06-09] MEDS: PROPARACAINE 0.5% OPHTH DROPS 15 ML BTL LEFT EYE STA (09:15)
[2024-06-09] MEDS: LIDOCAINE-PRILOCAINE 2.5-2.5% CREAM 5 GM TUBE TOPICAL STA (09:31)
[2024-06-09] MEDS: CAPSAICIN 0.025% CREAM 60 GM TUBE TOPICAL STA (09:32)
[2024-06-09 09:51] VITALS: BP 142/84; PULSE 90; RESP 18
== END 2024-06-09 09:51 | disposition home or self-care (01) ==
LOC: EC 08:17
DX: B02.9 Zoster without complications (principal)
CPT/HCPCS: 99283; 96372; J1885

== ENCOUNTER → 2024-06-18 | Outpatient (CLI) | payer BC ==
--- NOTE | 2024-06-21 07:38 | MM ---
Reason for Exam: Screening (asymptomatic). Last mammogram was performed 1 year(s) and 6 month(s) ago. Patient History: Menarche at age 16. First Full-Term at age 29. Hysterectomy at age 42. Premenopausal. Hormonal Contraceptives, starting at age 18. Risk Values: Hollie 5 year model risk: 0.8%. NCI Lifetime model risk: 9.8%. Prior Study Comparison: 12/04/2020 Bilateral Screening Mammogram, [facility]. 12/26/2022 Bilateral MG 3D screening mammo w/cad, [facility]. 12/31/2022 Left MG 3D work up w/cad , [facility]. Tissue Density: The breasts are heterogeneously dense, which may obscure small masses. Findings: Analyzed By CAD. Unchanged bilateral areas of asymmetric density. There is no suspicious group of microcalcifications or new suspicious mass in either breast. Overall Assessment: Benign, BI-RAD 2 Management: Screening Mammogram of both breasts in 1 year. Patient should continue monthly self-breast exams. A clinical breast exam by your physician is recommended on an annual basis. This exam should not preclude additional follow-up of suspicious palpable abnormalities. Note on Hollie scores and lifetime risk: 1. A Hollie score greater than 3% is considered moderate risk. If this is the case, consider specialist referral to assess eligibility for a risk reducing agent. 2. If overall lifetime risk for the development of breast cancer is 20% or higher, the patient may qualify for future screening with alternating mammogram and breast MRI. [facility], , 06/21/2024 7:36 AM. Electronically signed and approved by: Berny Lockhart M.D. Radiologist
== END | disposition home or self-care (01) ==
LOC: RADMAMWWP 15:44
PROVIDERS: ATTEND Family Medicine
DX: Z12.31 Encounter for screening mammogram for malignant neoplasm of breast (principal); R92.333 Mammographic heterogeneous density, bilateral breasts
CPT/HCPCS: 77063; 77067